=== PATIENT | male | born 1995 | race Caucasian/White ===

== ENCOUNTER 2021-06-27 09:37 | Emergency (ER) | payer OTHER ==
[~2021-06-27] VITALS: Ht 180.3 cm; Wt 86.2 kg
[~2021-06-27 09:37] MED LIST: DARVOCET-N 1001 EACH PO; NOHOMEMEDICATIONS
[2021-06-27] MEDS ORDERED: ADDERALL 30 MG30 MG PO (09:54)
[2021-06-27] MEDS ORDERED: CEPHALEXIN500 MG PO (10:39)
[2021-06-27] MEDS ORDERED: BACTRIM DS TAB1 EACH PO (10:39)
[2021-06-27 10:47] VITALS: BP 149/80
== END 2021-06-27 10:47 | disposition home or self-care (01) ==
LOC: M.ERS 09:37
DX: L03.116 Cellulitis of left lower limb (principal); F90.8 Attention-deficit hyperactivity disorder, other type; Z90.89 Acquired absence of other organs; Z79.899 Other long term (current) drug therapy